=== PATIENT | female | born 1985 | race Caucasian/White ===

== ENCOUNTER 2017-08-21 18:33 | Emergency (ER) | payer BC ==
[~2017-08-21] VITALS: Ht 167.6 cm; Wt 2.4 kg
[2017-08-21 22:12] VITALS: BP 110/81
== END 2017-08-21 22:12 | disposition home or self-care (01) ==
LOC: ED 18:33
DX: S43.401A Unspecified sprain of right shoulder joint, initial encounter (principal); W10.9XXA Fall (on) (from) unspecified stairs and steps, initial encounter; Y93.89 Activity, other specified; Y92.89 Other specified places as the place of occurrence of the external cause; Y99.8 Other external cause status
CPT/HCPCS: J1885